=== PATIENT | female | born 1990 | race Caucasian/White ===

== ENCOUNTER 2020-06-20 22:01 | Emergency (ER) | payer MEDICAID ==
[~2020-06-20] VITALS: Ht 152.4 cm; Wt 74.8 kg
[2020-06-20 22:04] VITALS: BP 149/79
--- NOTE | 2020-06-20 22:09 | NUR ---
30 Y/O FEMALE C/O BILATERAL UPPER RIB PAIN X 15 MINS; PT DENIES ANY TRAUMA OR INJURY; PT STATES WAS FEEDING BABY AND PAIN OCCURED ; PAIN 7/10 AND CONSTANT; PAIN RADIATES TO HER BACK AND IS A SHARP PRESSURE FEELING; DENIES N/V/D; SKIN IS PINK/WARM/DRY; AAOX4 WITH EVEN AND STEADY GAIT; HR EVEN AND REGULAR; PT DENIES ANY FEVER, SOB, OR COUGH AT THIS TIME; VSS; PATIENT POSITIONED FOR COMFORT; HOB ELEVATED; BEDRAILS UP X2; BED DOWN AND LOCKED. ER MD MADE AWARE OF PT STATUS. PMH: PT DENIES NKA
--- NOTE | 2020-06-20 22:11 | NUR ---
PT AMBULATED TO BED 3 WITH STEADY GAIT
[2020-06-20] MEDS ORDERED: ALUMINUM HYD/MAG/SIMETHICONE 30 ML UDC PO ONE (22:20)
[2020-06-20] MEDS ORDERED: KETOROLAC 60 MG/2 ML VIAL IM ONE (22:20)
[2020-06-20] MEDS ORDERED: LIDOCAINE VISCOUS 2% 20 ML UDC PO ONE (22:20)
[2020-06-20] MEDS ORDERED: DICYCLOMINE HCL LIQUID 10 MG/5 ML UDC PO ONE (22:20)
--- NOTE | 2020-06-20 22:30 | NUR ---
XRAY AT BEDSIDE
--- NOTE | 2020-06-20 22:53 | NUR ---
EKG BEING DONE AT BEDSIDE BY CECI MELTON
--- NOTE | 2020-06-20 22:55 | NUR ---
EKG PERFORMED AT BEDSIDE
--- NOTE | 2020-06-20 23:05 | NUR ---
URINE SAMPLE OBTAINED AND LEFT FOR LAB TO PICKUP
[2020-06-20 23:25] VITALS: BP 149/79
--- NOTE | 2020-06-20 23:25 | NUR ---
Patient discharged with v/s stable. Written and verbal after care instructions given and explained. Patient alert, oriented and verbalized understanding of instructions. Ambulatory with steady gait. All questions addressed prior to discharge. ID band removed. Patient advised to follow up with PMD. Rx of OMPERAZOLE given. Patient educated on indication of medication including possible reaction and side effects. Opportunity to ask questions provided and answered.
== END 2020-06-20 23:25 | disposition home or self-care (01) ==
LOC: MED 22:01 → EDBD 22:01 → MED 23:25
DX: K29.70 Gastritis, unspecified, without bleeding (principal)
CPT/HCPCS: 71045; 81025; 93005; 96372; 99284; J1885

== ENCOUNTER 2022-07-23 12:24 | Emergency (ER) | payer MEDICAID ==
[~2022-07-23] VITALS: Ht 152.4 cm; Wt 75.7 kg
[2022-07-23 12:39] VITALS: BP 130/69
[2022-07-23] MEDS ORDERED: IBUP-2213 PO (13:41)
[2022-07-23] MEDS ORDERED: CIPR7.5S OT (13:41)
[2022-07-23] MEDS ORDERED: AMOX1TAB8 PO (13:41)
[2022-07-23 13:52] VITALS: BP 115/70
--- NOTE | 2022-07-23 13:53 | NUR ---
Patient discharged with v/s stable. Written and verbal after care instructions given and explained. Patient alert, oriented and verbalized understanding of instructions. Ambulatory with steady gait. All questions addressed prior to discharge. ID band removed. Patient advised to follow up with PMD. Rx of cipro, motrin given. Patient educated on indication of medication including possible reaction and side effects. Opportunity to ask questions provided and answered.
== END 2022-07-23 13:52 | disposition home or self-care (01) ==
LOC: MED 12:24
DX: H60.91 Unspecified otitis externa, right ear (principal); K08.89 Other specified disorders of teeth and supporting structures
CPT/HCPCS: 99283

== ENCOUNTER 2024-06-17 09:02 | Emergency (ER) | payer MEDICAID, OTHER ==
[~2024-06-17] VITALS: Ht 152.4 cm; Wt 75.4 kg
[~2024-06-17 09:02] MED LIST: AMOX1TAB8 PO; CIPR7.5S OT; IBUP-2213 PO
[2024-06-17 09:26] VITALS: BP 119/77; PULSE 143; RESP 18; TEMP 98.3; O2SAT 98
[2024-06-17] MEDS: NACL 0.9% 2,000 ML IV ONE (10:12)
[2024-06-17] MEDS: ACETAMINOPHEN EXTRA STRENGTH 500 MG TAB PO ONE (10:12)
[2024-06-17 10:46] LABS: ALBUMIN 2.9 g/dL (3.4-5.0); BILIRUBIN,DIRECT 0.3 mg/dL (0.0-0.3); TOTAL BILIRUBIN 0.8 mg/dL (0.0-1.0); TOTAL PROTEIN, SERUM 7.7 g/dL (6.4-8.2)
[2024-06-17 10:49] LABS: BILIRUBIN,URINE NEGATIVE (NEGATIVE); BLOOD, URINE 2+ (NEGATIVE); COLOR,URINE YELLOW (YELLOW); NITRITE, URINE POSITIVE (NEGATIVE); PROTEIN,URINE 3+ (NEGATIVE); UGLUCOSE NEGATIVE (NEGATIVE)
[2024-06-17 10:56] LABS: SQUAMOUS EPITHELIAL CELL,UR 4-10 (MOD) /LPF (0-3 (FEW))
[2024-06-17 10:57] LABS: BACTERIA,URINE 1+ /HPF (None Seen)
[2024-06-17 11:00] LABS: APPEARANCE,URINE SLIGHTLY HAZY (CLEAR); LEUKOCYTE ESTERASE ,URINE 1+ (NEGATIVE)
[2024-06-17 11:03] LABS: FLU B ANTIGEN negative (NEGATIVE)
[2024-06-17 11:08] LABS: FLU A ANTIGEN POSITIVE (NEGATIVE)
[2024-06-17 11:09] LABS: BASOPHILS % (AUTO) 0.3 % (0.0-2.0); EOSINOPHILS % (AUTO) 0.2 % (0.0-4.0); HEMATOCRIT 36.7 % (36-48); HEMOGLOBIN 12.2 g/dL (12.0-16.0); LYMPHOCYTES # (AUTO) 0.7 K/uL (2.5-16.5); MEAN CORPUSCULAR HEMOGLOBIN 27 pg (27-31); MEAN CORPUSCULAR HGB CONC 33 g/dL (33-37); MEAN CORPUSCULAR VOLUME 80.5 fL (80-94); MONOCYTES # (AUTO) 0.3 K/uL (0.8-1.0); MONOCYTES % (AUTO) 3.5 % (1.7-9.3); NEUTROPHILS # (AUTO) 7.8 K/uL (1.8-7.7); PLATELET COUNT (AUTO) 256 K/uL (140-450); RED BLOOD CELL COUNT(AUTO) 4.56 MIL/uL (4.20-5.40); RED CELL DISTRIBUTION WIDTH 13.5 % (11.6-13.7); WHITE BLOOD COUNT (AUTO) 8.9 K/uL (4.8-10.8)
[2024-06-17 11:29] LABS: ANION GAP 14.1 (8-16); CALCIUM 9.2 mg/dL (8.5-10.1); CARBON DIOXIDE 24.9 mmol/L (21-32)
[2024-06-17] MEDS ORDERED: ONDA-188 PO (11:36)
[2024-06-17 12:00] VITALS: BP 100/56; PULSE 94; RESP 19; TEMP 98.6; O2SAT 96
[2024-06-17] MEDS ORDERED: CEPH-588 PO (12:09)
== END 2024-06-17 13:08 | disposition home or self-care (01) ==
LOC: MED 09:02
DX: J11.1 Influenza due to unidentified influenza virus with other respiratory manifestations (principal); N17.9 Acute kidney failure, unspecified; N39.0 Urinary tract infection, site not specified; Z20.822 Contact with and (suspected) exposure to COVID-19; Z79.899 Other long term (current) drug therapy
CPT/HCPCS: 36415; 80048; 80076; 81001; 81025; 83690; 85025; 87086; 87426; 87804; 96360; 99283; J7030